=== PATIENT | male | born 1960 | race Two or more races ===

== ENCOUNTER 2022-04-21 14:09 | Inpatient (IN) | payer OTHER ==
[~2022-04-21] VITALS: Ht 172.7 cm; Wt 88.9 kg
--- NOTE | 2022-04-21 15:08 | NUR ---
PTE VERBALIZA QUE VIENE POR REFERIDO DE DR FRANSISCO PERRY PARA PRE ADMICION. PTE SE OBSERVA A/O X3.
--- NOTE | 2022-04-21 19:01 | NUR ---
MASCULINO ALERTA Y ORIENTADO EVALUADO POR DR SANDERS QUIEN ORDENA [place] MEDICO. SE EDUCA A PTE Y SE EJECUTA ORDEN MEDICA EN TRONCOSO TOTALIDAD.
[2022-04-23] MEDS ORDERED: PANTOPRAZOLE SO40 MG (15:27)
[2022-04-26] MEDS ORDERED: NEURONTIN300 MG PO (10:25)
== END 2022-04-26 23:12 | disposition home or self-care (01) | DRG 331 ==
LOC: ER 14:09 → SURH 21:58
PROVIDERS: ADMIT Surgery; ATTEND Surgery
PROC: 3E0H8KZ Introduction of Other Diagnostic Substance into Lower GI, Via Natural or Artificial Opening Endoscopic (ICD-10-PCS; 2022-04-22)
PROC: 07BC4ZZ Excision of Pelvis Lymphatic, Percutaneous Endoscopic Approach (ICD-10-PCS; 2022-04-23)
PROC: 0DBU4ZZ Excision of Omentum, Percutaneous Endoscopic Approach (ICD-10-PCS; 2022-04-23)
PROC: 0DTG4ZZ Resection of Left Large Intestine, Percutaneous Endoscopic Approach (ICD-10-PCS; principal; 2022-04-23 11:15)
DX: C18.5 Malignant neoplasm of splenic flexure (principal); Z20.822 Contact with and (suspected) exposure to COVID-19

== ENCOUNTER 2022-06-21 07:05 | Day surgery (SDC) | payer OTHER ==
[~2022-06-21] VITALS: Ht 172.7 cm; Wt 88.9 kg
[~2022-06-21 07:05] MED LIST: NEURONTIN300 MG PO; PANTOPRAZOLE SO40 MG; ZESTRIL10 M1 PO
[2022-06-21] MEDS ORDERED: TRAM1TAB98 PO (13:48)
== END 2022-06-21 16:30 | disposition home or self-care (01) ==
LOC: CIR.AMB 07:05
PROVIDERS: ATTEND Surgery
DX: C18.5 Malignant neoplasm of splenic flexure (principal); R59.0 Localized enlarged lymph nodes; I10 Essential (primary) hypertension; Z86.16 Personal history of COVID-19; R73.03 Prediabetes